=== PATIENT | female | born 1985 ===

== ENCOUNTER 2018-08-07 03:17 | Emergency (ER) | payer BC ==
[2018-08-07 03:49] VITALS: BMI 32.8
[2018-08-07 03:51] VITALS: BP 115/81; PULSE 76; RESP 18; TEMP 97.9; O2SAT 98
--- NOTE | 2018-08-07 04:20 | ED PDOC ---
HPI: Skin/Bite Injury Time Seen by Provider: 08/07/18 03:48 Chief Complaint (Nursing): Abnormal Skin Integrity Chief Complaint (Provider): Bee bite History Per: Patient History/Exam Limitations: no limitations Onset/Duration Of Symptoms: Days (x1) Current Symptoms Are (Timing): Still Present Location Of Injury: Left: Hand Quality Of Symptoms: Itching, Swollen Additional Complaint(s): 32 year old female presents to the ED complaining of a bee bite on the left 4th finger which happened x1 day ago. Patient reports bite got gradually more swollen, painful, itchy and red today. She states she saw the bee that stung her in her apartment and was sure it was not a wasp or other insect that bit her. Patient has been taking aspirin for pain and has applied ice with very little improvement. Denies fever. PMD: Raymundo Mari Past Medical History Reviewed: Historical Data, Nursing Documentation, Vital Signs Vital Signs: Last Vital Signs Temp 97.9 F 08/07/18 03:25 Pulse 76 08/07/18 03:25 Resp 18 08/07/18 03:25 BP 115/81 08/07/18 03:25 Pulse Ox 98 08/07/18 04:29 - Medical History PMH: No Chronic Diseases Denies: Depression - Surgical History Surgical History: No Surg Hx - Family History Family History: States: Unknown Family Hx - Home Medications Home Medications: Ambulatory Orders Medication Instructions Recorded DiphenhydrAMINE [Benadryl] 25 mg PO Q6 PRN #20 cap 08/07/18 Prednisone 50 mg PO DAILY #3 tablet 08/07/18 - Allergies Allergies/Adverse Reactions: Allergies Allergy/AdvReac Type Severity Reaction Status Date / Time shellfish derived Allergy RASH Verified 08/07/18 03:48 Review of Systems ROS Statement: Except As Marked, All Systems Reviewed And Found Negative Constitutional: Negative for: Fever Skin: Positive for: Other (Bite which is swollen, painful, itchy, and red.) Physical Exam - Reviewed Nursing Documentation Reviewed: Yes Vital Signs Reviewed: Yes - Physical Exam Appears: Positive for: Non-toxic, No Acute Distress Head Exam: Positive for: ATRAUMATIC, NORMAL INSPECTION, NORMOCEPHALIC Skin: Positive for: Normal Color, Warm, Dry Neck: Positive for: Normal, Painless ROM Extremity: Positive for: Normal ROM, Other (Left Hand: diffuse swelling and redness of the left finger more significant in the proximal. Nontender on palpation and not warm. No discharge, vesicles or papules. Full ROM of fingers. ) Neurologic/Psych: Positive for: Alert, Oriented. Negative for: Motor/Sensory Deficits - ECG O2 Sat by Pulse Oximetry: 98 (RA) Pulse Ox Interpretation: Normal Medical Decision Making Medical Decision Making: Initial Impression: Bee sting Differential includes allergic reaction to the bee sting. Initial Plan: --Benadryl 50mg PO --Pepcid 20mg PO --Prednisone 60mg PO Scribe Attestation: Documented by Venkat Gupta acting as a scribe for Nikole Floyd MD. Provider Scribe Attestation: All medical record entries made by the Scribe were at my direction and personally dictated by me. I have reviewed the chart and agree that the record accurately reflects my personal performance of the history, physical exam, medical decision making, and the department course for this patient. I have also personally directed, reviewed, and agree with the discharge instructions and disposition. Disposition - Clinical Impression Clinical Impression: Bee sting, Allergic reaction - Patient ED Disposition Is Patient to be Admitted: No Doctor Will See Patient In The: Office Counseled Patient/Family Regarding: Studies Performed, Diagnosis, Need For Followup - Disposition Referrals: [facility] [Outside] Disposition: Routine/Home Disposition Time: 06:30 Condition: GOOD Additional Instructions: LORENZO KRUGER, thank you for letting us take care of you today. Your provider was Nikole Floyd MD and you were treated for LT FINGER BITE. The emergency medical care you received today was directed at your acute symptoms. If you were prescribed any medication, please fill it and take as directed. It may take several days for your symptoms to resolve. Return to the Emergency Department if your symptoms worsen, do not improve, or if you have any other problems. Please contact your doctor or call one of the physicians/clinics you have been referred to that are listed on the Patient Visit Information form that is included in your discharge packet. Bring any paperwork you were given at discharge with you along with any medications you are taking to your follow up visit. Our treatment cannot replace ongoing medical care by a primary care provider outside of the emergency department. Thank you for allowing the [facility] team to be part of your care today. If you had an X-Ray or CT scan: A Radiologist will review the ED reading if any change in treatment is needed we will contact you. If you had a blood, urine, or wound culture: It will take several days for the results, if any change in treatment is needed we will contact you. If you had an STI test: It will take 48 hours for the results. Please call after 1 week if you have not heard back. Prescriptions: DiphenhydrAMINE [Benadryl] 25 mg PO Q6 PRN #20 cap PRN Reason: Allergy Symptoms Prednisone 50 mg PO DAILY #3 tablet Instructions: Insect Allergy, Insect Bites and Stings (DC)
== END 2018-08-07 06:10 | disposition home or self-care (01) ==
LOC: H.ER 03:17
DX: S69.92XA Unspecified injury of left wrist, hand and finger(s), initial encounter (principal); W57.XXXA Bitten or stung by nonvenomous insect and other nonvenomous arthropods, initial encounter; Y92.89 Other specified places as the place of occurrence of the external cause